=== PATIENT | male | born 1990 | race Caucasian/White ===

== ENCOUNTER 2021-09-01 08:42 | Emergency (ER) | payer SELFPAY ==
[~2021-09-01 08:42] MED LIST: BACLOFEN 20MG T20 MG PO; FLEXERIL10 MG PO; MEDROL 4MG DOSEP4 MG PO
[2021-09-01] MEDS ORDERED: MEDROL 4MG DOSEP4 MG PO (11:25)
[2021-09-01] MEDS ORDERED: CYCLOBENZAPRINE10 MG PO (11:25)
[2021-09-01] MEDS ORDERED: NAPROXEN500 MG PO (11:25)
[2021-09-01] MEDS ORDERED: NORCO 5-325 TA1 EACH PO (11:34)
== END 2021-09-01 11:40 | disposition home or self-care (01) ==
LOC: FER 08:42
DX: S39.012A Strain of muscle, fascia and tendon of lower back, initial encounter (principal); F17.290 Nicotine dependence, other tobacco product, uncomplicated; X50.0XXA Overexertion from strenuous movement or load, initial encounter; Y92.89 Other specified places as the place of occurrence of the external cause; Y99.0 Civilian activity done for income or pay
CPT/HCPCS: 72131; 96372; J1885; J2930

== ENCOUNTER 2022-02-05 17:00 | Emergency (ER) | payer OTHER ==
[~2022-02-05 17:00] MED LIST changes: +CYCLOBENZAPRINE10 MG PO; +NAPROXEN500 MG PO; +NORCO 5-325 TA1 EACH PO
== END 2022-02-05 19:19 | disposition home or self-care (01) ==
LOC: FER 17:00
DX: S61.412A Laceration without foreign body of left hand, initial encounter (principal); F17.290 Nicotine dependence, other tobacco product, uncomplicated; Z23 Encounter for immunization; W29.8XXA Contact with other powered hand tools and household machinery, initial encounter; Y92.89 Other specified places as the place of occurrence of the external cause; Y99.0 Civilian activity done for income or pay; Z28.310 Unvaccinated for COVID-19
CPT/HCPCS: 73130; 90471; 90714

== ENCOUNTER 2022-02-09 22:14 | Emergency (ER) | payer SELFPAY ==
[2022-02-10] MEDS ORDERED: CYCLOBENZAPRINE10 MG PO (02:53)
[2022-02-10] MEDS ORDERED: NAPROXEN500 MG PO (02:53)
== END 2022-02-10 03:03 | disposition home or self-care (01) ==
LOC: FER 22:14
DX: M25.512 Pain in left shoulder (principal)
CPT/HCPCS: 73030